=== PATIENT | female | born 1955 | race Two or more races ===

== ENCOUNTER → 2022-09-26 07:14 | Outpatient (BNVA) | payer BC, SELFPAY | PROVIDERS: PCP Internal Medicine; Visit Provider Student in an Organized Health Care Education/Training Program ==

== ENCOUNTER 2023-04-01 07:33 | Outpatient (AMB) | payer BC, SELFPAY ==
[2023-04-01 07:37] VITALS: BP 124/60; PULSE 83; TEMP 36.7; O2SAT 95; BMI 25.7
--- NOTE | 2023-04-01 07:37 | A.OFFVIS_ITS ---
Intake Vital Signs 04/01/23 07:37 Height 5 ft 9.5 in Weight 176 lb 12.972 oz BMI 25.7 BP 124/60 Blood Pressure Location Lt brachial Position Sitting Pulse 83 Pulse Source Pulse Oximeter Temp 98.1 F Temp Source Skin Pulse Oximetry (%) 95 Oxygen Delivery Method Room Air Intake Visit Reasons: hand OA Intake Note: Pt last seen 09/26/22, presents today for follow up. 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 States that went to 3 or 4 times of hand therapy and not feel that it was helpful. States that he his has a paraffin wax machine at home, he never used it. States that his left thumb interphalangeal joint hurts with activity and has a significantly limited range of motion. States that recently his right 5th toe has been curling up and hurts when he walks. Initial history: This is a 67-year-old male who is referred for evaluation of bilateral hand pain. States that this started about 2 years ago. Patient stated that he worked in [employer] almost all his life. He retired at age 63. But he continues to work with his son. He has a [employer] business. 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 He also sometimes has knee pain that is worse with bending down and kneeling. Tylenol and NSAIDs did not provide much relief. He also applied Voltaren gel to his hands without relief. [facility] Medical History Hypercholesterolemia Tick bite DJD (degenerative joint disease) Benign colon polyp Overweight (BMI 25.0-29.9) Acute hemorrhoid Surgical History History of repair of inguinal hernia History of surgical removal of pilonidal cyst H/O colonoscopy History of carpal tunnel release Family History Father Bladder cancer Myocardial infarction Hx of CABG Cancer Hemochromatosis Paternal Grandfather Colon cancer Sister Hemochromatosis Social History Patient Tobacco Use Status: Former Tobacco user Cigarette Packs Per Day: 1 Review of Systems Musc Reports deformity, Reports arthralgias, Reports limited range of motion and Reports stiffness Physical Exam Vital Signs: Last Vital Signs Temp 98.1 F 04/01/23 07:37 Pulse 83 04/01/23 07:37 BP 124/60 04/01/23 07:37 Pulse Ox 95 04/01/23 07:37 Oxygen Delivery Method Room Air 04/01/23 07:37 BMI result Body Mass Index 25.7 Const General: cooperative Nutritional Appearance: overweight Orientation/consciousness: patient oriented x3 Limitations: no limitations HEENT Head: Yes normocephalic and Yes atraumatic Mouth: moist mucous membranes Resp Effort & Inspection: normal respiratory effort and able to speak in complete sentences Neuro General: patient oriented x3 Extrem Other: Osteoarthritic changes of both hands with Heberden's and Jonathan's nodes. Bilateral 1st CMC squaring. Changes are more prominent on the right hand Left 1st CMC joint tenderness and positive grind test. Significantly limited thumb interphalangeal joint flexion bilaterally Few tender Heberden's nodes Results Reviewed Results Reviewed: X-RAY EXAM OF HAND, 3+ VIEWS Exam Date: 04/02/2022 9:02 AM Ordering Diagnosis: Pain in both hands ? Bilateral hands, 3 views of each. ? History pain. There are severe degenerative changes in the 1st carpometacarpal joint on the right and moderate on the left. There are moderate degenerative changes in the 1st metacarpophalangeal joints and interphalangeal joints of the thumbs bilaterally. There are mild degenerative changes in the 2nd and 3rd metacarpophalangeal joints on the right and 2nd metacarpophalangeal joint on the left. There are multi site degenerative changes in the DIP joints bilaterally, more prominent on the right. Additionally there are periarticular soft tissue calcifications in the right 3rd 4th and 5th fingers. No acute fractures or dislocations. There is deformity of the left 5th metacarpal bone most likely due to old fracture. ? CONCLUSIONS: Multisite degenerative changes as detailed more prominent on the right. Assessment & Plan Assessment & Plan (1) Osteoarthritis of hands, bilateral: Code(s): M19.041 - Primary osteoarthritis, right hand; M19.042 - Primary osteoarthritis, left hand Qualifiers: Osteoarthritis type: primary Qualified Code(s): M19.041 - Primary osteoarthritis, right hand; M19.042 - Primary osteoarthritis, left hand Plan: 67-year-old male presents for evaluation of bilateral hand osteo arthritis. Patient went to 3 or 4 sessions of occupational therapy. Did not feel it was helpful. The most symptomatic joint is the thumb interphalangeal joint. He would like to get an opinion from hand surgery. Will refer patient to Hand surgery I suggested evaluation by a weld engineer due to right 4th toe pain Follow-up with me as needed Plan I spent 15 minutes reviewing patient's chart, evaluating patient, placing orders, counseling patient and documenting in the chart Orders: Referrals Hand Surgery Referral M19.041 - Primary osteoarthritis, right hand, M19.042 - Primary osteoarthritis, left hand Coding Level of Care Code Est Pt Level 3 (80753) Diagnoses Primary osteoarthritis of both hands M19.041; M19.042 Osteoarthritis type: primary
== END 2023-04-01 08:06 | disposition home or self-care (01) ==
PROVIDERS: PCP Internal Medicine; Visit Provider Student in an Organized Health Care Education/Training Program
DX: M19.041 Primary osteoarthritis, right hand (principal); M19.042 Primary osteoarthritis, left hand
CPT/HCPCS: 99213

== ENCOUNTER → 2023-04-01 07:33 | Outpatient (BNVA) | payer BC, SELFPAY | PROVIDERS: Visit Provider Student in an Organized Health Care Education/Training Program ==

== ENCOUNTER 2023-05-29 08:17 | Outpatient (REF) | payer BC, SELFPAY ==
--- NOTE | ~2023-05-29 | XR_ITS ---
EXAMINATION: XR LEFT HAND XR RIGHT HAND XR RIGHT FOOT CLINICAL INFORMATION: Primary osteoarthritis unspecified hand, hand pain, question DJD. Pain in right foot. Question DJD. COMPARISON: None available. TECHNIQUE: 3 views of the left hand. 3 views of the right hand. 3 views of the right foot. FINDINGS: Right Foot: Small dorsal and plantar calcaneal spurs. Advanced degenerative changes in the first metatarsophalangeal joint with joint space narrowing, hypertrophic change, subluxation and medial soft tissue bunion. Grouped amorphous soft tissue calcifications adjacent to scattered joints most notable along the medial aspect of the first IP joint, lateral fourth PIP joint, and medial fifth MTP joint. Right Hand: Severe degenerative changes in the first carpometacarpal joint with joint space narrowing and hypertrophic change. Advanced degenerative changes in scattered IP joints of the hand with joint space narrowing and hypertrophic change most severe in the second and third DIP joints. Ulcerations adjacent to scattered IP joints. Degenerative changes and scattered MCP joints, most notable in the first MCP joint. Bones are diffusely demineralized. Left Hand: Severe degenerative changes in the first carpometacarpal joint with joint space narrowing and hypertrophic change. Advanced degenerative changes in scattered IP joints of the hand with joint space narrowing and hypertrophic change most severe in the fourth PIP, first IP and second DIP joints. Ulcerations adjacent to scattered IP joints. Degenerative changes and scattered MCP joints, most notable in the first MCP joint. Bones are diffusely demineralized. XR/XR hand LT min 3V IMPRESSION: 1. Advanced degenerative changes in bilateral hands. 2. Small dorsal and plantar calcaneal spurs. Recommend follow-up imaging in 10-14 days if fracture is suspected.
--- NOTE | ~2023-05-29 | XR_ITS ---
EXAMINATION: XR LEFT HAND XR RIGHT HAND XR RIGHT FOOT CLINICAL INFORMATION: Primary osteoarthritis unspecified hand, hand pain, question DJD. Pain in right foot. Question DJD. COMPARISON: None available. TECHNIQUE: 3 views of the left hand. 3 views of the right hand. 3 views of the right foot. FINDINGS: Right Foot: Small dorsal and plantar calcaneal spurs. Advanced degenerative changes in the first metatarsophalangeal joint with joint space narrowing, hypertrophic change, subluxation and medial soft tissue bunion. Grouped amorphous soft tissue calcifications adjacent to scattered joints most notable along the medial aspect of the first IP joint, lateral fourth PIP joint, and medial fifth MTP joint. Right Hand: Severe degenerative changes in the first carpometacarpal joint with joint space narrowing and hypertrophic change. Advanced degenerative changes in scattered IP joints of the hand with joint space narrowing and hypertrophic change most severe in the second and third DIP joints. Ulcerations adjacent to scattered IP joints. Degenerative changes and scattered MCP joints, most notable in the first MCP joint. Bones are diffusely demineralized. Left Hand: Severe degenerative changes in the first carpometacarpal joint with joint space narrowing and hypertrophic change. Advanced degenerative changes in scattered IP joints of the hand with joint space narrowing and hypertrophic change most severe in the fourth PIP, first IP and second DIP joints. Ulcerations adjacent to scattered IP joints. Degenerative changes and scattered MCP joints, most notable in the first MCP joint. Bones are diffusely demineralized. XR/XR hand RT min 3V IMPRESSION: 1. Advanced degenerative changes in bilateral hands. 2. Small dorsal and plantar calcaneal spurs. Recommend follow-up imaging in 10-14 days if fracture is suspected.
--- NOTE | ~2023-05-29 | XR_ITS ---
EXAMINATION: XR KNEE, LEFT CLINICAL INFORMATION: Pain unspecified joint. COMPARISON: None available. TECHNIQUE: 3 views of the left knee. FINDINGS: Joint effusion. Moderate medial joint space narrowing. Minimal medial marginal osteophytes. Tiny posterior patellar spurs. Vascular calcifications. XR/XR knee LT 3V IMPRESSION: Joint effusion. Moderate medial joint space narrowing.
--- NOTE | ~2023-05-29 | XR_ITS ---
EXAMINATION: XR LEFT HAND XR RIGHT HAND XR RIGHT FOOT CLINICAL INFORMATION: Primary osteoarthritis unspecified hand, hand pain, question DJD. Pain in right foot. Question DJD. COMPARISON: None available. TECHNIQUE: 3 views of the left hand. 3 views of the right hand. 3 views of the right foot. FINDINGS: Right Foot: Small dorsal and plantar calcaneal spurs. Advanced degenerative changes in the first metatarsophalangeal joint with joint space narrowing, hypertrophic change, subluxation and medial soft tissue bunion. Grouped amorphous soft tissue calcifications adjacent to scattered joints most notable along the medial aspect of the first IP joint, lateral fourth PIP joint, and medial fifth MTP joint. Right Hand: Severe degenerative changes in the first carpometacarpal joint with joint space narrowing and hypertrophic change. Advanced degenerative changes in scattered IP joints of the hand with joint space narrowing and hypertrophic change most severe in the second and third DIP joints. Ulcerations adjacent to scattered IP joints. Degenerative changes and scattered MCP joints, most notable in the first MCP joint. Bones are diffusely demineralized. Left Hand: Severe degenerative changes in the first carpometacarpal joint with joint space narrowing and hypertrophic change. Advanced degenerative changes in scattered IP joints of the hand with joint space narrowing and hypertrophic change most severe in the fourth PIP, first IP and second DIP joints. Ulcerations adjacent to scattered IP joints. Degenerative changes and scattered MCP joints, most notable in the first MCP joint. Bones are diffusely demineralized. XR/XR foot RT 2V IMPRESSION: 1. Advanced degenerative changes in bilateral hands. 2. Small dorsal and plantar calcaneal spurs. Recommend follow-up imaging in 10-14 days if fracture is suspected.
== END 2023-05-29 08:18 | disposition home or self-care (01) ==
LOC: HO.HOSX 08:17
PROVIDERS: PCP Internal Medicine; Visit Provider Physical Medicine & Rehabilitation
DX: M25.562 Pain in left knee (principal); M19.041 Primary osteoarthritis, right hand; M19.042 Primary osteoarthritis, left hand; M79.671 Pain in right foot
CPT/HCPCS: 73130; 73562; 73620

== ENCOUNTER 2023-05-29 08:17 | Outpatient (AMB) | payer BC, SELFPAY ==
[2023-05-29 08:27] VITALS: BMI 25.6
--- NOTE | 2023-05-29 08:27 | MHC.OFFVIS ---
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 States his right hand is worse than her left. States his thumbs and index finger are constantly swollen. Also joint pain in his thumbs. Patient has tried P.T, topical OTC pain cream, and Tylenol with very little improvement. Denies numbness or tingling. No injury. Allergies No Known Allergies Allergy (Verified 05/29/23 08:32) Medication List - Last Reconciled 05/29/23 by Echo Hernandez MD No Known Home Meds HPI HPI Comments History of Present Illness Details Hand pain chronic for years. Bony enlargement noted on joints. Started right foot is having same problem despite changing shoes, little toe feels going under. Mentions left knee pain chronic, has not looked into yet but does not think he's had history of meniscal injury. Has had physical type of job over the years. 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 He used to follow Dr. Mcnamara in Rheumatology [place], was diagnosed as osteoarthritis. No recent imaging though. Treatment done so far: tylenol therapy for the hands [facility] Medical History Hypercholesterolemia Tick bite DJD (degenerative joint disease) Benign colon polyp Overweight (BMI 25.0-29.9) Acute hemorrhoid Surgical History History of repair of inguinal hernia History of surgical removal of pilonidal cyst H/O colonoscopy History of carpal tunnel release Family History Father Bladder cancer Myocardial infarction Hx of CABG Cancer Hemochromatosis Paternal Grandfather Colon cancer Sister Hemochromatosis Social History Patient Tobacco Use Status: Former Tobacco user Cigarette Packs Per Day: 1 Review of Systems Const All systems reviewed & are unremarkable except as noted in HPI and below Physical Exam Vital Signs: BMI result Body Mass Index 25.6 Constitutional: Patient appears to be in no acute distress, well nourished and well developed. MSK: Bony enlargement on almost all IP joints, especially right 2nd to 5th PIP. and left 2nd PIP; bony enlargement on bilateral 2nd MCP joints; bony enlargement and tenderness on bilateral CMC joints No intrinsic hand weakness noted. No atrophy noted. Salud test negative. Carpal compression test negative. Tinel sign negative. No tenderness in Achillis tendon or plantar fascia or any if the malleoli. Redness noted on 5th toe, right. No tenderness, swelling, redness or warmth on left knee. Strength is 5/5 in all muscle groups tested. No increased tone noted. Neurological: Neurologic examination of the upper and lower extremities was nonfocal with intact sensation, muscle stretch reflexes and without focal motor deficits . Schneider?s negative bilaterally. Babinski was down going bilaterally. Clonus was negative. Gait is non-antalgic without loss of balance. Results Reviewed Results Reviewed: I reviewed records from the following: Rheumatology Assessment & Plan Assessment & Plan (1) Hand arthritis: Code(s): M19.049 - Primary osteoarthritis, unspecified hand (2) Foot pain, right: Code(s): M79.671 - Pain in right foot (3) Left knee pain: Code(s): M25.562 - Pain in left knee Qualifiers: Chronicity: chronic Qualified Code(s): M25.562 - Pain in left knee; G89.29 - Other chronic pain Plan Multi joint pain in setting of previously diagnosed osteoarthritis. No signs of active synovitis or inflammatoin or instability. Will send of xrays of bilateral hands, right foot and left knee today. We discussed possible injections or referrral to Dr. Jamil for surgical options. Injections to knee could be steroid or hyaluronic. Further recommendations to follow after xrays. Assessment and plan discussed with patient, and patient was agreeable. All questions were answered thoroughly. Echo Hernandez MD, WAN Board Certified, [place] Board [employer] and Rehabilitation (ABPMR) Board Certified, [place] Board [employer] Electrodiagnostic Medicine (ABEM) Orders: Orders XR foot RT 2V Today M79.671 - Pain in right foot XR hand LT min 3V Today M19.049 - Primary osteoarthritis, unspecified hand XR hand RT min 3V Today M19.049 - Primary osteoarthritis, unspecified hand XR knee LT 3V Today M25.50 - Pain in unspecified joint, M25.562 - Pain in left knee Coding Level of Care Code New Pt Level 4 (83468) Diagnoses Hand arthritis M19.049 Foot pain, right M79.671 Chronic pain of left knee M25.562; G89.29 Chronicity: chronic
== END 2023-05-29 09:34 | disposition home or self-care (01) ==
PROVIDERS: PCP Internal Medicine; Visit Provider Physical Medicine & Rehabilitation
DX: M19.049 Primary osteoarthritis, unspecified hand (principal); M79.671 Pain in right foot; M25.562 Pain in left knee; G89.29 Other chronic pain
CPT/HCPCS: 99204

== ENCOUNTER 2023-07-09 08:52 | Outpatient (AMB) | payer BC, SELFPAY ==
[2023-07-09 08:53] VITALS: BMI 26.0
--- NOTE | 2023-07-09 08:53 | MHC.OFFVIS ---
Intake Vital Signs 07/09/23 08:53 Height 5 ft 9 in Weight 176 lb BMI 26.0 Intake Visit Reasons: OV - Left Knee DJD - Discuss Injection/ Confirmed Intake Note: Elias is a 68 year old male who presents today for a follow up of his left knee Degenerative Joint Disease. Today we are discussing possible injections, steroid vs hyaluraonic. No previous injections. He is worried that he has an injury to the knee interested in having an MRI done Allergies No Known Allergies Allergy (Verified 05/29/23 08:32) HPI HPI Comments History of Present Illness Details Hand pain chronic for at least 3 years. Bony enlargement noted on joints. Started right foot is having same problem despite changing shoes, little toe feels going under. Mentions left knee pain chronic, has not looked into yet but does not think he's had history of meniscal injury. Has had physical type of job over the years. He used to follow Dr. Mcnamara in Rheumatology [place], was diagnosed as osteoarthritis. No recent imaging though. Treatment done so far: tylenol therapy for the hands Seeing Dr. Jamil for hand pain, surgical options. [facility] Medical History (Updated 07/09/23 @ 09:18 by Echo Hernandez MD) Left knee DJD Hypercholesterolemia Tick bite DJD (degenerative joint disease) Benign colon polyp Overweight (BMI 25.0-29.9) Acute hemorrhoid Surgical History History of repair of inguinal hernia History of surgical removal of pilonidal cyst H/O colonoscopy History of carpal tunnel release Family History Father Bladder cancer Myocardial infarction Hx of CABG Cancer Hemochromatosis Paternal Grandfather Colon cancer Sister Hemochromatosis Social History Patient Tobacco Use Status: Former Tobacco user Cigarette Packs Per Day: 1 Review of Systems Const All systems reviewed & are unremarkable except as noted in HPI and below Physical Exam Vital Signs: BMI result Body Mass Index 26.0 Constitutional: Patient appears to be in no acute distress, well nourished and well developed. MSK: No tenderness, swelling, redness or warmth on left knee. Negative pain on varus or valgus stress. Negative robert, anterior drawer or posterior drawer tests. Strength is 5/5 in all muscle groups tested. No increased tone noted. Neurological: Neurologic examination of the upper and lower extremities was nonfocal with intact sensation, muscle stretch reflexes and without focal motor deficits . Babinski was down going bilaterally. Clonus was negative. Gait is non-antalgic without loss of balance. Office Procedures Joint Injection/Drain Joint Injection/Drain Details: Consent obtained. Patient sits with [left] knee flexed. Medial edge of patella is identified and marked. Area is cleansed with betadine solution. A 27 gauge needle is injected at an angle laterally and slightly upwards under the patella. Solution containing [40 mg] Kenalog and [3m] of 2% Lidocaine is instilled. Patient tolerated procedure well without complications. Post-injection instructions given. Primary Site: left knee Injected: 40 mg of, Kenalog and with 3 mL of (2% lidocaine) Procedure: The patient tolerated the procedure well Coding 59812 - Large joint Procedure code (CPT) selection complete Results Reviewed Results Reviewed: Date of Service: 05/29/23 Procedure(s): XR knee LT 3V Accession Number(s): [id number] cc: Shaggy Cox III, MD; Echo Sellers EXAMINATION: XR KNEE, LEFT CLINICAL INFORMATION: Pain unspecified joint.? COMPARISON: None available.? TECHNIQUE: 3 views of the left knee. FINDINGS: Joint effusion. Moderate medial joint space narrowing. Minimal medial marginal osteophytes. Tiny posterior patellar spurs. Vascular calcifications.? XR/XR knee LT 3V IMPRESSION: Joint effusion. Moderate medial joint space narrowing. Assessment & Plan Assessment & Plan (1) Chronic pain of left knee: Code(s): M25.562 - Pain in left knee; G89.29 - Other chronic pain (2) Left knee DJD: Code(s): M17.12 - Unilateral primary osteoarthritis, left knee Qualifiers: Osteoarthritis type: primary Qualified Code(s): M17.12 - Unilateral primary osteoarthritis, left knee (3) Patellofemoral arthritis of left knee: Code(s): M17.12 - Unilateral primary osteoarthritis, left knee Plan Discussed xray images with patient. I suspect that is enough reason for his pain and clicking. Injury possibly 3 years ago though not showing anymore meniscal signs. Discussed that we could get an MRI to rule it out but if he did have a meniscal injury 3 years ago, suspect it would have healed by now. Discussed difference between steroid vs hyaluronic injection. Patient ultimately decided on getting steroid injection today and deferring MRI for now. Assessment and plan discussed with patient, and patient was agreeable. All questions were answered thoroughly. Follow-up 3 months. Echo Hernandez MD, WAN Board Certified, [place] Board [employer] and Rehabilitation (ABPMR) Board Certified, [place] Board [employer] Electrodiagnostic Medicine (ABEM) Orders: Orders AMB Joint Injection/Aspiration Today M17.12 - Unilateral primary osteoarthritis, left knee Coding Level of Care Code Est Pt Level 3 (69933) Diagnoses Chronic pain of left knee M25.562; G89.29 Primary osteoarthritis of left knee M17.12 Osteoarthritis type: primary Patellofemoral arthritis of left knee M17.12 CPT Codes Coding - 63279 Large joint: 14992 - Large joint ([id number])
== END 2023-07-09 09:25 | disposition home or self-care (01) ==
PROVIDERS: PCP Internal Medicine; Visit Provider Physical Medicine & Rehabilitation
DX: M17.12 Unilateral primary osteoarthritis, left knee (principal)
CPT/HCPCS: 20610; 99213

== ENCOUNTER → 2023-07-09 08:52 | Outpatient (BNVA) | payer BC, SELFPAY | PROVIDERS: PCP Internal Medicine; Visit Provider Physical Medicine & Rehabilitation | DX: M17.12 Unilateral primary osteoarthritis, left knee (principal); G89.29 Other chronic pain; M25.562 Pain in left knee | CPT/HCPCS: 20610; J3301 ==

== ENCOUNTER 2023-07-15 09:19 | Outpatient (REF) | payer BC, SELFPAY ==
--- NOTE | ~2023-07-15 | XR_ITS ---
EXAMINATION: XR HAND, RIGHT CLINICAL INFORMATION: Pain in right hand, attention basal joint. COMPARISON: 06/04/2023 TECHNIQUE: PA, lateral, and oblique views of the right hand. FINDINGS: Severe degenerative changes in the first carpometacarpal joint with joint space narrowing, hypertrophic change and subluxation. Severe degenerative changes in the first metacarpophalangeal joint with loss of the joint space and hypertrophic change. There is increased periarticular soft tissue calcific/ossific fragments, possibly related to a destructive process as well as possible periarticular erosive change. Degenerative changes in additional MCP joints. Advanced degenerative changes in scattered IP joints of the hand, most severe in the second and third DIP joints, as well as erosions adjacent to scattered IP joints. XR/XR hand RT min 3V IMPRESSION: 1. Severe degenerative changes in the first carpometacarpal joint with joint space narrowing, hypertrophic change and subluxation. 2. Severe degenerative changes in the first metacarpophalangeal joint with loss of the joint space and hypertrophic change. There is increased periarticular soft tissue calcific/ossific fragments, possibly related to a destructive process and/or trauma/fracture as well as possible periarticular erosive change. 3. Advanced degenerative changes in scattered IP joints of the hand, most severe in the second and third DIP joints, as well as erosions adjacent to scattered IP joints.
== END 2023-07-15 09:20 | disposition home or self-care (01) ==
LOC: HO.HOSX 09:19
PROVIDERS: PCP Internal Medicine; Visit Provider Orthopaedic Surgery
DX: M18.11 Unilateral primary osteoarthritis of first carpometacarpal joint, right hand (principal)
CPT/HCPCS: 73130

== ENCOUNTER 2023-07-15 09:19 | Outpatient (AMB) | payer BC, SELFPAY ==
--- NOTE | 2023-07-15 09:43 | MHC.OFFVIS ---
Intake Intake Visit Reasons: N/Problem - Bilateral Hand Pain Intake Note: Elias 68 yr old male presents today for a new problem visit for bilateral hand pain. States his right hand is worse since its his dominant hand. States his pain is mostly on his knuckles and his thumb. States he has stiffness in his thumb, difficulty opening a jar and twisting wires knots while doing home projects. Also has swelling in his joints and deformity of his index finger. Hx of left hand CTR approx 7-8 yrs ago and O.A. Allergies No Known Allergies Allergy (Verified 07/15/23 09:44) HPI N/Problem - Bilateral Hand Pain HPI Details Elias is a 68 year old right hand dominant man who presents with complaints of bilateral hand pain & swelling and deformity, R>L. He complains of pain primarily in the knuckles of his thumbs, but says he does have pain in his other digits. His pain is worse with pinching, gripping, or twisting activities. He says opening jars or performing at-home projects is difficult due to his pain. He reports swelling in his hands, primarily the joints, and has a deformity of his right index finger. 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 [facility] Medical History (Updated 07/15/23 @ 10:01 by Lamine Ward) Left knee DJD Hypercholesterolemia Tick bite DJD (degenerative joint disease) Benign colon polyp Overweight (BMI 25.0-29.9) Acute hemorrhoid Surgical History History of repair of inguinal hernia History of surgical removal of pilonidal cyst H/O colonoscopy History of carpal tunnel release Family History Father Bladder cancer Myocardial infarction Hx of CABG Cancer Hemochromatosis Paternal Grandfather Colon cancer Sister Hemochromatosis Social History (Updated 07/15/23 @ 09:50 by SHARMILA Mcgowan) Patient Tobacco Use Status: Former Tobacco user Cigarette Packs Per Day: 1 Current occupational status: retired 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 Review of Systems Const All systems reviewed & are unremarkable except as noted in HPI and below Physical Exam Const General: cooperative, healthy appearing and no acute distress Orientation/consciousness: patient oriented x3 HEENT Head: Yes normocephalic and Yes atraumatic Eyes EOM: EOMs intact bilaterally Resp Effort & Inspection: normal respiratory effort and able to speak in complete sentences Cardio Jugular venous distension: no JVD Skin General skin exam: turgor normal Rashes: no rashes Neuro General: patient oriented x3 Extrem Other: Evaluation of Right Upper Extremity: The patient is alert, oriented, and in no acute distress Neuro: Median, Ulnar, Radial nerves motor and sensory intact and sensation is normal to the tips of all digits Vascular: Cap refill brisk ROM: He has generalized osteoarthritic changes in both hands. He can still make a fist and extend all his digits. Mild flexion contractures of the middle and ring finger PIP joints bilaterally. He can pretty well get both hands flat on the table at this point. No locking or catching Skin: No lacerations or abrasions. General: No Ecchymosis. No Erythema or evidence of infection. Minimally tender over the Basal joint + Shoulder sign He is got generalized osteoarthritic changes in pretty much all of the PIP and D IP joints in both hands. In the right index finger were starting to see a little bit of a supination deformity particularly in the D IP joint. However the joint is stable and not particularly tender. Radiographs: 3 views of the right hand, with attention to the thumb, were taken and viewed by me today in clinic. They show no fractures or dislocations. He has severe basal joint OA with near complete loss of the joint space and osteophyte formation. The STT joint appears well-preserved. he also has some arthritis and joint space narrowing of the thumb MCP & IP joints. He also has generalized arthritic changes in pretty much all of the PIP and D IP joints. Psych Appearance: grossly normal Affect: normal affect Attitude: cooperative Assessment & Plan Assessment & Plan (1) Arthritis of carpometacarpal (CMC) joint of right thumb: Code(s): M18.11 - Unilateral primary osteoarthritis of first carpometacarpal joint, right hand Plan Assessment & Plan: 1. Generalized osteoarthritic changes in both hands. This involves the basal joints and also the PIP and D IP joints. His complaint is more of generalized symptoms and wanting to know if there is anything he can do to help his symptoms or keep them from getting worse. No focal pain or swelling today in clinic. I educated him about this condition We discussed the importance of activity modification at length. We also talked about the importance of maintaining his range of motion and I showed him some range of motion exercises that he will continue to do. I discussed operative and non-operative treatment options. I am not recommending any operative treatment or injections today. He is happy with the information and will follow up p.r.n.. Scribed for Jud Jamil MD by Lamine Ward, faculty i on call medical assistant, on 07/15/23 at 10:10 AM, EST. Orders: Orders XR hand RT min 3V Today M79.641 - Pain in right hand Coding Level of Care Code New Pt Level 3 (46630) Diagnoses Arthritis of carpometacarpal (CMC) joint of right thumb M18.11
== END 2023-07-15 10:18 | disposition home or self-care (01) ==
PROVIDERS: PCP Internal Medicine; Visit Provider Orthopaedic Surgery
DX: M18.11 Unilateral primary osteoarthritis of first carpometacarpal joint, right hand (principal)
CPT/HCPCS: 99213

== ENCOUNTER 2023-10-08 08:59 | Outpatient (AMB) | payer BC, SELFPAY ==
[2023-10-08 09:08] VITALS: BMI 25.8
--- NOTE | 2023-10-08 09:08 | MHC.OFFVIS ---
Vital Signs 10/08/23 09:08 Height 5 ft 9 in Weight 175 lb BMI 25.8 Intake Visit Reasons: Left Knee DJD Intake Note: Elias is a 68 year old male who presents today for a follow up of his left knee Degenerative Joint Disease. Last Injection done 07/09/23. Patient reports that this injection provided mild relief. He has increased pain with lifting or carrying. Allergies No Known Allergies Allergy (Verified 10/08/23 09:10) Medication List - Last Reconciled 10/08/23 by Echo Hernandez MD acetaminophen ER 650 mg PO Q12H HPI Comments Details: Hand pain chronic for at least 3 years. Bony enlargement noted on joints. Started right foot is having same problem despite changing shoes, little toe feels going under. Mentions left knee pain chronic, has not looked into yet but does not think he's had history of meniscal injury. Has had physical type of job over the years. He used to follow Dr. Mcnamara in [facility] [place], was diagnosed as osteoarthritis. No recent imaging though. Treatment done so far: tylenol therapy for the hands We did knee injection, left, last visit 07/09/23. Overall better but still with some pain, on and off, usually when lifting or how he slept that night. Not constant pain. 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 Saw Dr. Jamil who did not recommend surgical management. [facility] Medical History Left knee DJD Hypercholesterolemia Tick bite DJD (degenerative joint disease) Benign colon polyp Overweight (BMI 25.0-29.9) Acute hemorrhoid Surgical History History of repair of inguinal hernia History of surgical removal of pilonidal cyst H/O colonoscopy History of carpal tunnel release Family History Father Bladder cancer Myocardial infarction Hx of CABG Cancer Hemochromatosis Paternal Grandfather Colon cancer Sister Hemochromatosis Social History Patient Tobacco Use Status: Former Tobacco user Cigarette Packs Per Day: 1 Current occupational status: retired 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 MSK: No tenderness, swelling, redness or warmth on left knee. Negative pain on varus or valgus stress. Negative robert, anterior drawer or posterior drawer tests. Strength is 5/5 in all muscle groups tested. No increased tone noted. Neurological: Neurologic examination of the upper and lower extremities was nonfocal with intact sensation, muscle stretch reflexes and without focal motor deficits . Babinski was down going bilaterally. Clonus was negative. Gait is non-antalgic without loss of balance. Results Reviewed Results Reviewed: Date of Service: 05/29/23 Procedure(s): XR knee LT 3V Accession Number(s): [id number] cc: Shaggy Cox III, MD; Echo Sellers EXAMINATION: XR KNEE, LEFT CLINICAL INFORMATION: Pain unspecified joint.? COMPARISON: None available.? TECHNIQUE: 3 views of the left knee. FINDINGS: Joint effusion. Moderate medial joint space narrowing. Minimal medial marginal osteophytes. Tiny posterior patellar spurs. Vascular calcifications.? XR/XR knee LT 3V IMPRESSION: Joint effusion. Moderate medial joint space narrowing. Assessment & Plan Assessment & Plan (1) Patellofemoral arthritis of left knee: Code(s): M17.12 - Unilateral primary osteoarthritis, left knee Category: Medical (2) Hand arthritis: Code(s): M19.049 - Primary osteoarthritis, unspecified hand Category: Medical Plan left knee pain - we talked about pros/cons of doing gel injections and different formulary (synvisc one once injection vs once weekly euflexxa for 3 weeks). He says he will think about it. We talked briefly about consideration of knee replacement and offered to refer him to Dr. Hernandez. He wants to wait it out for maybe 2 years. He is overall only having on/off pain and able to walk and do recreational activities such as fishing. hand pain - degenerative changes. 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 Assessment and plan discussed with patient, and patient was agreeable. All questions were answered thoroughly. Follow-up as needed. Call us if he decides on gel injection or knee replacement. Echo Hernandez MD, WAN Board Certified, [place] [employer] and [employer] (ABPMR) Board Certified, [place] [employer] (ABEM) Coding Level of Care Code Est Pt Level 3 (73416) Diagnoses Patellofemoral arthritis of left knee M17.12 Hand arthritis M19.049
== END 2023-10-08 09:39 | disposition home or self-care (01) ==
PROVIDERS: PCP Internal Medicine; Visit Provider Physical Medicine & Rehabilitation
DX: M17.12 Unilateral primary osteoarthritis, left knee (principal); M19.049 Primary osteoarthritis, unspecified hand
CPT/HCPCS: 99213

== ENCOUNTER → 2023-10-08 08:59 | Outpatient (BNVA) | payer BC, SELFPAY | PROVIDERS: PCP Internal Medicine; Visit Provider Physical Medicine & Rehabilitation ==